=== PATIENT | male | born 1980 | race Caucasian/White ===

== ENCOUNTER → 2021-01-07 16:17 | Outpatient (CLI) | payer BC, SELFPAY ==
--- NOTE | ~2021-01-07 | XR_ITS ---
[id number] 01/07/2021 16:41 Indication: Neck pain Procedure: 5 views cervical spine Comparison: 10/22/2006 Findings: No fracture, subluxation or dislocation. No prevertebral soft tissue swelling. Odontoid pro cess within normal limits. No evidence for spondylolisthesis. Lung apices are unremarkable. Impression: 1: No significant abnormality of the cervical spine. Reviewed, dictated and finalized at location A. Impression: 1: No significant abnormality of the cervical spine.
--- NOTE | ~2021-01-07 | XR_ITS ---
XR thoracic spine 2V 01/07/2021 16:41 Indication: Back pain Procedure: 3 views thoracic spine Comparison: No prior studies for comparison. Findings: Vertebral body heights are maintained. Pedicles intact. No fracture or traumatic malalignme nt. No paraspinal soft tissue abnormality. Surrounding osseous structures within normal limits. Impression: 1: No significant abnormality of the thoracic spine. Reviewed, dictated and finalized at location A. Impression: 1: No significant abnormality of the thoracic spine.
== END ==
PROVIDERS: PCP Internal Medicine; Visit Provider Internal Medicine
DX: M54.2 Cervicalgia (principal); M54.6 Pain in thoracic spine
CPT/HCPCS: 72040; 72070

== ENCOUNTER 2022-02-13 09:37 | Outpatient (CLI) | payer BC, SELFPAY ==
--- NOTE | 2022-02-13 09:51 | ECHO_ITS ---
Patient Info Name: Aníbal Wagner Age: 41 years : 1980 Gender: Male Ht: 69 in Wt: 225 lbs BSA: 2.26 m2 HR: 75 bpm BP: 131 / 98 mmHg Technical Quality: Good Exam Date: 02/13/2022 10:08 AM Exam Location: [facility] Patient Status: Outpatient Admit Date: 02/13/2022 Staff Ordering Physician: Compa Bosch DO Sheet Manufacturing Supervisor: Kelli Mars RDCS Attending Provider: Compa Bosch DO Referring Physician: Danitza GRIGGS; Exam Type: CA echo doppler color flow Study Info Indications Z87.39 - PERSONAL HISTORY OF OTHER DISEASES OF THE MUSCULAR Complete two-dimensional, color flow and Doppler transthoracic echocardiogram is performed. Summary 1. Complete two-dimensional, color flow and Doppler transthoracic echocardiogram is performed. 2. Left ventricular chamber dimension is normal. 3. Left ventricular systolic function is normal, estimated at 60-65%. 4. There is mildly increased left ventricular wall thickness. 5. The left ventricular diastolic function is grade II diastolic dysfunction. 6. E/e' 6 is not elevated. 7. Left atrial chamber dimension is mildly enlarged. 8. There is trace tricuspid valve regurgitation. 9. No pulmonary hypertension, estimated pulmonary arterial systolic pressure is 20 mmHg. Left Ventricle E/e' 6 is not elevated. Left ventricular chamber dimension is normal. Left ventricular systolic function is normal, estimated at 60-65%. There is mildly increased left ventricular wall thickness. The left ventricular diastolic function is grade II diastolic dysfunction. Right Ventricle Right ventricular chamber dimension is normal. Right ventricular systolic function is normal. Left Atria Left atrial chamber dimension is mildly enlarged. Right Atria Right atrial chamber dimension is normal. Aortic Valve The aortic valve is trileaflet. There is no aortic valve stenosis. There is no aortic valve regurgitation. Pulmonic Valve There is no pulmonic regurgitation. Mitral Valve There is no mitral valve stenosis. There is no mitral valve regurgitation. Tricuspid Valve There is trace tricuspid valve regurgitation. No pulmonary hypertension, estimated pulmonary arterial systolic pressure is 20 mmHg. Pericardium/Pleural There is no pericardial effusion. Inferior Vena Cava Normal inferior vena cava with >50% collapse upon inspiration consistent with normal right atrial pressure, 5 mmHg. Aorta The aortic root size at the sinus of Valsalva is normal. Left Ventricular Outflow Tract Name Value Normal LVOT 2D LVOT Diameter 2.0 cm LVOT Doppler LVOT Peak Gradient 8 mmHg LVOT Mean Gradient 5 mmHg LVOT VTI 26 cm LVOT VTI/AV VTI Ratio 0.9 LVOT Stroke Volume 81 ml LVOT CO 6.1 l/min LVOT CI 2.7 l/min/m2 Pulmonic Valve Name Value
== END 2022-02-13 09:38 | disposition home or self-care (01) ==
LOC: ANHCARD 09:42
PROVIDERS: PCP Internal Medicine; Visit Provider Internal Medicine
DX: I10 Essential (primary) hypertension (principal); Z87.39 Personal history of other diseases of the musculoskeletal system and connective tissue
CPT/HCPCS: 93306

== ENCOUNTER 2022-12-07 15:51 | Outpatient (CLI) | payer BC, SELFPAY ==
[2022-12-07 17:06] LABS: Strep Group A RT-PCR DETECTED (Negative)
[2022-12-07 17:21] LABS: Influenza A QL RT-PCR Negative (Negative); Influenza B QL RT-PCR Negative (Negative); SARS-CoV-2 RNA PCR Negative (Negative)
== END 2022-12-07 15:52 | disposition home or self-care (01) ==
LOC: ANHLAB 15:53
PROVIDERS: PCP Internal Medicine; Visit Provider Internal Medicine
DX: J02.9 Acute pharyngitis, unspecified (principal); R50.9 Fever, unspecified; Z20.822 Contact with and (suspected) exposure to COVID-19
CPT/HCPCS: 87636; 87651

== ENCOUNTER → 2023-03-04 08:46 | Outpatient (CLI) | payer BC, SELFPAY ==
--- NOTE | ~2023-03-04 | US_ITS ---
Abdominal Sonogram: Real-time sonographic imaging of the abdomen was performed. Clinical History: Abnormal LFTs Findings: The liver appears echogenic, with no evidence of mass lesion or bile duct dilatation. Main portal vein demonstrates normal direction of flow. The spleen is normal in size without evidence of focal lesion. The gallbladder is well distended, and appears normal with no evidence of gallstone or wall thickening. The common bile duct measures 3 mm. The visualized pancreas, aorta, and IVC are un remarkable. The right kidney measures 11.2 cm in length and the left kidney measures 11.6 cm. There is no hydronephrosis or renal calculus. Impression: Diffuse fatty infiltration of the liver. Reviewed, dictated and finalized at location M. Impression: Diffuse fatty infiltration of the liver.
== END ==
PROVIDERS: PCP Internal Medicine; Visit Provider Internal Medicine
DX: R94.5 Abnormal results of liver function studies (principal); K76.0 Fatty (change of) liver, not elsewhere classified
CPT/HCPCS: 76700